=== PATIENT | female | born 1995 | race Caucasian/White ===

== ENCOUNTER 2017-02-04 16:37 | Emergency (ER) | payer OTHER ==
[~2017-02-04] VITALS: Ht 157.5 cm; Wt 78.0 kg
[2017-02-04 16:42] VITALS: Ht 157.5 cm; Wt 78.0 kg
[2017-02-04] MEDS ORDERED: predniSONE 20 MG TAB PO ONE (18:00)
[2017-02-04] MEDS ORDERED: PRED20TA PO (18:00)
--- NOTE | 2017-02-04 18:03 | ERD ---
ER Documentation Chief Complaint Date/Time DATE: 02/04/17 TIME: 18:02 Chief Complaint RASH X 1 WEEK HPI This is a 21-year-old female complains a rash for 1 week that is itching. The rash is located in bilateral axilla, chest, neck, right anterior thigh. Patient does not know she has had a new exposure other than changing laundry detergents.. It is possible that she had some shrimp before the onset. No shortness of breath no swelling of the face lips tongue or throat no difficulty swallowing or speaking. Patient saw her primary care doctor and put her on some ointment but it is not helping she was told it was a fungal infection. ROS All systems reviewed and are negative except as per history of present illness. Medications Home Meds Active Scripts Prednisone* (Prednisone*) 20 Mg Tab, 60 MG PO DAILY for 5 Days, TAB Prov:SAMINA SAMUELS DO 02/04/17 Allergies Allergies: Coded Allergies: No Known Allergy (Unverified , 02/04/17) PMhx/Soc Medical and Surgical Hx: pt denies Medical Hx, pt denies Surgical Hx History of Surgery: No Anesthesia Reaction: No Hx Neurological Disorder: No Hx Respiratory Disorders: No Hx Cardiac Disorders: No Hx Psychiatric Problems: No Hx Miscellaneous Medical Probl: No Hx Alcohol Use: No Hx Substance Use: No Hx Tobacco Use: No Smoking Status: Never smoker FmHx Family History: No coronary disease Physical Exam Vitals Vital Signs Date Time Temp Pulse Resp B/P Pulse Ox O2 Delivery O2 Flow Rate FiO2 02/04/17 16:42 98.1 88 18 133/78 99 Physical Exam Const: Well-developed, well-nourished Head: Atraumatic, normocephalic Eyes: Normal Conjunctiva, PERRLA, EOMI, normal sclera, no nystagmus ENT: Normal External Ears, Nose and Mouth, moist mucus membranes. Neck: Full range of motion. No meningismus, no lymphadenopathy. Resp: Clear to auscultation bilaterally, no wheezing, rhonchi, rales Cardio: Regular rate and rhythm, no murmurs, S1 S2 present Abd: Soft, non tender x 4, non distended. Normal bowel sounds, no guarding or rebound, no pulsitile abdominal masses or bruits Skin: No petechiae or rashes, no ecchymosis , no maculopapular rash, diffuse rash that resembles hives to the chest and neck, the axillary rash looked more like flat based red lesions no weeping no signs of cellulitis Back: No midline or flank tenderness Ext: No cyanosis, or edema, FROM x 4, normal inspection, neurovascularly intact x 4 Neur: Awake and alert, STR 5/5 x 4, sensation intact x 4, no focal findings, cerebellum intact Psych: Normal Mood and Affect Results 24 hrs Current Medications Medications (Trade) Dose Ordered Sig/Mague Route PRN Reason Start Time Stop Time Status Last Admin Dose Admin Prednisone (Prednisone) 60 mg ONCE ONCE PO 02/04/17 18:00 02/04/17 18:01 DC Procedures/MDM Rash is likely an allergic type reaction review the patient foods to avoid laundry detergent soaps etc. Departure Diagnosis: Primary Impression: Allergic reaction Encounter type: initial encounter Qualified Code: T78.40XA - Allergic reaction, initial encounter Condition: Stable Patient Instructions: Allergic Reaction, Other (General) SAMINA SAMUELS DO Feb 04, 2017 18:03
== END 2017-02-04 18:44 | disposition home or self-care (01) ==
LOC: FTE 16:37
DX: R21 Rash and other nonspecific skin eruption (principal)
CPT/HCPCS: J7512; Z7502; 99283